=== PATIENT | female | born 1950 | race Caucasian/White ===

== ENCOUNTER 2023-05-20 14:40 | Inpatient (IN) | payer MEDICARE, OTHER, SELFPAY ==
[2023-05-20 14:40] VITALS: BP 127/76; PULSE 76; RESP 16; TEMP 36.8; O2SAT 100; BMI 28.7
--- NOTE | 2023-05-20 14:55 | W.ED.SYNCOPE ---
HPI - Syncope General: Chief Complaint: Syncope Stated Complaint: syncopal episode Time Seen by Provider: 05/20/23 14:52 Source: patient Mode of arrival: ambulatory History of Present Illness: 73-year-old female presents to the emergency room with dizziness and syncopal episode. She was standing outside getting ready to get on a bus felt lightheaded dizzy so bystander eased her to the ground there was a loss of consciousness that she relates was 2 minutes she had some convulsive like activities. She denies headache or chest pain she does have some abdominal cramping. She denies dysuria urgency or frequency no fever sweats chills vomiting or diarrhea. No shortness of breath denies headache. Patient awake alert and oriented. Patient denies any recent head trauma. MD complaint: loss of consciousness Onset (ago): minute(s) Description of event: tonic-clonic movements Prodromal symptoms: lightheaded and palpitations Witnessed: Yes - by Bystander Context: standing up Associated symptoms: Reports lightheadedness, nausea and weakness; Deny abdominal pain, chest pain, fever(s), headache(s), short of breath or vertigo Treatments prior to arrival: none Review of Systems Const: Denies: fever(s) or chills Card: Reports: lightheadedness; Denies: chest pain Resp: Denies: dyspnea GI: Reports: nausea; Denies: abdominal pain : Denies: dysuria, urinary frequency or urinary urgency Musc: Denies: neck pain or back pain Skin/Breast: Denies: rash Neuro: Denies: headache(s) or vertigo Physical Exam Const: GENERAL APPEARANCE: cooperative and comfortable ORIENTATION/CONSCIOUSNESS: Yes awake, Yes oriented to person, Yes oriented to place and Yes oriented to time HENMT: COMMON NORMALS: normocephalic, atraumatic and hearing grossly normal bilaterally HEAD & SCALP: normocephalic and atraumatic Resp: COMMON NORMALS: normal respiratory effort, No retractions, No use of accessory muscles and clear to auscultation bilaterally AUSCULTATION: clear to auscultation bilaterally Cardio: COMMON NORMALS: regular rate, regular rhythm and No murmurs present (Cardio) RATE: regular rate RHYTHM: regular rhythm GI: COMMON NORMALS: Soft to palpation and No hepatosplenomegaly present AUSCULTATION: Yes normoactive bowel sounds PALPATION: Yes Soft to palpation, No Tenderness to palpation present (GI), No Guarding due to palpation present (GI) and Yes No hepatosplenomegaly present Extremity: COMMON NORMALS: normal to inspection, capillary refill normal, no clubbing, cyanosis or edema, no calf tenderness and no pedal edema Neuro: SENSORIUM/ORIENTATION: Yes oriented to person, Yes oriented to place and Yes oriented to time Skin: COMMON NORMALS: no rashes or lesions noted GENERAL SKIN EXAM: no rashes or lesions noted Course Vital Signs: Vital signs: Vital Signs Temperature 97.9 F 05/22/23 13:22 Pulse Rate 68 05/22/23 13:22 Respiratory Rate 18 05/22/23 13:22 Blood Pressure 167/93 05/22/23 13:22 Pulse Oximetry 100 05/22/23 13:22 Oxygen Delivery Me thod Room Air 05/22/23 12:14 MDM - Syncope Medical Decision Making Labs and imaging reviewed. Admit for syncope. Discussed with hospitalist orders written. Medical Records I reviewed the patient's medical records. Lab Data I reviewed the patient's lab results. 05/22/23 05:59 05/22/23 05:[address] 05/20/23 15:52 IMPRESSION: No acute intracranial abnormality. Laboratory Results WBC 6.78 10^3/uL (3.29-11.43) 05/20/23 15:12 RBC 4.08 10^6/uL (3.85-5.65) 05/20/23 15:12 Hgb 12.70 g/dL (11.27-16.99) 05/20/23 15:12 Hct 39.8 % (36-47) 05/20/23 15:12 MCV 97.5 fl (85-98) 05/20/23 15:12 MCH 31.1 pg (27-33) 05/20/23 15:12 MCHC 31.9 g/dL (30-55) 05/20/23 15:12 RDW 13.2 % (12.1-15.1) 05/20/23 15:12 Plt Count 144 10^3/cmm (157-399) L 05/20/23 15:12 MPV 10.0 fL (7.4-10.4) 05/20/23 15:12 Neut % (Auto) 89.9 % 05/20/23 15:12 Lymph % (Auto) 7.7 % 05/20/23 15:12 [place] % (Auto) 2.1 % 05/20/23 15:12 Eos % (Auto) 0.1 % 05/20/23 15:12 Baso % (Auto) 0.1 % 05/20/23 15:12 Neut # (Auto) 6.09 10^3/uL (1.8-7.7) 05/20/23 15:12 Lymph # (Auto) 0.5 10^3/uL (0.8-4.8) L 05/20/23 15:12 [place] # (Auto) 0.1 10^3/uL (0.2-0.9) L 05/20/23 15:12 Eos # (Auto) 0.0 10^3/uL (0.0-0.8) 05/20/23 15:12 Baso # (Auto) 0.0 10^3/uL (0.0-0.1) 05/20/23 15:12 Nucleated RBC % (auto) 0 % 05/20/23 15:12 Nucleated RBCs # 0.0 /100WBC 05/20/23 15:12 Sodium 139 mmol/L (136-145) 05/20/23 15:12 Potassium 4.2 mmol/L (3.5-5.1) 05/20/23 15:12 Chloride 103 mmol/L (98-107) 05/20/23 15:12 Carbon Dioxide 20 mmol/L (22-29) L 05/20/23 15:12 Anion Gap 20.2 (5-19) H 05/20/23 15:12 BUN 23 mg/dL (8-23) 05/20/23 15:12 Creatinine 1.0 mg/dL (0.5-0.9) H 05/20/23 15:12 GFR Calculation Not Reportable 05/20/23 15:12 Glucose 125 mg/dL (65-115) H 05/20/23 15:12 Calculated Osmolality 293 mOsm/kg (285-295) 05/20/23 15:12 Lactic Acid 0.9 mmol/L (0.5-2.2) 05/20/23 15:53 Calcium 9.8 mg/dL (8.5-10.5) 05/20/23 15:12 Magnesium 2.1 mg/dL (1.7-2.3) 05/20/23 15:12 Total Bilirubin 0.5 mg/dL (0.15-1.2) 05/20/23 15:12 AST 18 U/L (0-32) 05/20/23 15:12 ALT 10 U/L (0-33) 05/20/23 15:12 Alkaline Phosphatase 63 U/L (35-105) 05/20/23 15:12 Troponin T Baseline 12 ng/L (0-10) H 05/20/23 15:12 Troponin T 120 Minute 12.98 ng/L (0-10) H 05/20/23 17:05 Delta Troponin T 0.98 ABS# (0-10) 05/20/23 17:05 Total Protein 7.2 g/dL (6.6-8.7) 05/20/23 15:12 Albumin 4.5 g/dL (3.5-5.2) 05/20/23 15:12 Globulin 2.7 g/dL (1.3-4.6) 05/20/23 15:12 Urine Color Yellow (Yellow) 05/20/23 17:05 Urine Appearance Hazy (CLEAR) A 05/20/23 17:05 Urine pH 5 (5-7) 05/20/23 17:05 Ur Specific [place] 1.015 (1.005-1.030) 05/20/23 17:05 Urine Protein 1+ (Negative) H 05/20/23 17:05 Urine Glucose (UA) Norm (Normal) 05/20/23 17:05 Urine Ketones 1+ (Negative) H 05/20/23 17:05 Urine Blood 3+ (Negative) H 05/20/23 17:05 Urine Nitrate Negative (Negative) 05/20/23 17:05 Urine Bilirubin 1+ (Negative) H 05/20/23 17:05 Urine Urobilinogen 1 mg/dL (Negative) H 05/20/23 17:05 Ur Leukocyte Esterase 2+ (Negative) H 05/20/23 17:05 Urine RBC 10-15 /hpf (0-2) H 05/20/23 17:05 Urine WBC 25-40 /hpf (0-5) H 05/20/23 17:05 Ur Squamous Epith Cells 25-40 /hpf (0-5) H 05/20/23 17:05 Amorphous Sediment Not Reportable 05/20/23 17:05 Urine Bacteria 2+ /hpf (NONE) H 05/20/23 17:05 All radiology interpretation(s) finalized by discharge Discharge Plan Discharge Patient Disposition: Admitted As Inpatient Admit Provider: Hawa Avina Clinical Impression: Syncope, UTI (urinary tract infection) Condition: Stable Discharge Diet: Usual diet Discharge Activity: Resume usual activity Coding Level of Care Code ED 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
--- NOTE | 2023-05-20 15:02 | ECG_ITS ---
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 Measurements Intervals [place] Rate: 72 P: 28 [place]: 151 QRS: 9 QRSD: 81 T: 37 QT: 373 QTc: 409 Interpretive Statements SINUS RHYTHM POSSIBLE INFERIOR MYOCARDIAL INFARCTION , PROBABLY OLD [30 ms Q WAVE IN II/aVF] No previous ECG available for comparison Electronically Signed On 05-20-2023 23:08:40 CDT by Gio Mason M.D. [id number] f
--- NOTE | 2023-05-20 15:03 | XR_ITS ---
WS: [id number] Portable AP semiupright chest, Clinical Data: dyspnea/cough Comparison: None. Findings: No nodules, masses or effusions are seen. The heart is normal. The pulmonary vascularity is not increased. No pneumonia or pneumothorax is seen. The aortic arch and descending thoracic aorta s how tortuosity. Impression: Atherosclerosis.
[2023-05-20 15:21] LABS: Basophils % 0.1 %; Eosinophils % 0.1 %; Hematocrit 39.8 % (36-47); Lymphocytes # 0.5 10^3/uL (0.8-4.8); Lymphocytes % 7.7 %; Mean Corpuscular HGB Conc 31.9 g/dL (30-55); Mean Corpuscular Hemoglobin 31.1 pg (27-33); Mean Corpuscular Volume 97.5 fl (85-98); Monocytes # 0.1 10^3/uL (0.2-0.9); Monocytes % 2.1 %; Neutrophils # 6.09 10^3/uL (1.8-7.7); Neutrophils % 89.9 %; Nucleated Red Blood Cells % 0 %; Platelet Count 144 10^3/cmm (157-399); Red Blood Count 4.08 10^6/uL (3.85-5.65); Red Cell Distribution Width 13.2 % (12.1-15.1); White Blood Count 6.78 10^3/uL (3.29-11.43)
[2023-05-20 15:31] VITALS: BP 129/90; BP 135/83; BP 79/65
[2023-05-20 15:49] LABS: Alanine Aminotransferase 10 U/L (0-33); Albumin Level 4.5 g/dL (3.5-5.2); Alkaline Phosphatase 63 U/L (35-105); Anion Gap 20.2 (5-19); Aspartate Amino Transferase 18 U/L (0-32); Blood Urea Nitrogen 23 mg/dL (8-23); Calcium 9.8 mg/dL (8.5-10.5); Carbon Dioxide 20 mmol/L (22-29); Chloride 103 mmol/L (98-107); Globulin 2.7 g/dL (1.3-4.6); Glucose 125 mg/dL (65-115); Magnesium 2.1 mg/dL (1.7-2.3); Osmolality Calculated 293 mOsm/kg (285-295); Potassium 4.2 mmol/L (3.5-5.1); Sodium 139 mmol/L (136-145); Total Bilirubin 0.5 mg/dL (0.15-1.2); Total Protein 7.2 g/dL (6.6-8.7)
--- NOTE | 2023-05-20 15:52 | CTR_ITS ---
PROCEDURE INFORMATION: Exam: CT Head Without Contrast Exam date and time: 05/20/2023 4:16 PM Age: 73 years old Clinical indication: Alteration of consciousness and dizziness; Syncope and collapse; Additional info: Loc TECHNIQUE: Imaging protocol: Computed tomography of the head without contrast. Radiation optimization: All CT scans at this facility use at least one of these dose optimization techniques: automated exposure control; mA and/or kV adjustment per patient size (includes targeted exams where dose is matched to clinical indication); or iterative reconstruction. REPORTING DATA: Count of CT and Cardiac NM exams in prior 12 months: This patient has received 0 known CTs and 0 known cardiac nuclear medicine studies in the 12 months prior to the current study. COMPARISON: No relevant prior studies available. RADIATION DOSE METRICS: Total DLP (mGy-cm): 984.6 FINDINGS: Brain: Mild parenchymal volume loss. Mild bilateral periventricular and subcortical white matter hypodensities are present compatible with small-vessel ischemic disease. No midline shift. No mass, acute infarct, hemorrhage, or extra-axial fluid collection. Cerebral ventricles: No ventriculomegaly. Paranasal sinuses: Visualized sinuses are unremarkable. No fluid levels. Mastoid air cells: Visualized mastoid air cells are well aerated. Bones/joints: Unremarkable. No acute fracture. Soft tissues: Unremarkable. CT/CT head wo con* [id number] IMPRESSION: No acute intracranial abnormality.
[2023-05-20 16:46] LABS: Troponin(5th) Baseline 12 ng/L (0-10)
[2023-05-20 16:48] LABS: Lactic Sepsis W/Reflex 0.9 mmol/L (0.5-2.2)
[2023-05-20 16:53] VITALS: BP 127/61; PULSE 70; RESP 15; O2SAT 100
[2023-05-20 17:33] LABS: Troponin 5 2HR 12.98 ng/L (0-10)
[2023-05-20 17:34] LABS: Troponin 5 2HR Delta 0.98 ABS# (0-10)
--- NOTE | 2023-05-20 17:59 | ECG_ITS ---
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 Measurements Intervals [place] Rate: 71 P: 29 [place]: 148 QRS: 12 QRSD: 80 T: 46 QT: 369 QTc: 401 Interpretive Statements SINUS RHYTHM Compared to ECG 05/20/2023 14:44:13 Myocardial infarct finding no longer present Electronically Signed On 05-20-2023 23:10:28 CDT by Gio Mason M.D. [id number]
[2023-05-20 18:00] VITALS: BP 131/79; PULSE 81; RESP 23; O2SAT 98
[2023-05-20 18:05] LABS: Add Urine Microscopic? YES; Bacteria Urine 2+ /hpf; Bilirubin Urine 1+ (Negative); Blood Urine 3+ (Negative); Glucose Urine UA Norm (Normal); Ketones Urine 1+ (Negative); Leukocyte Esterase Urine 2+ (Negative); Nitrate Urine Negative (Negative); Protein Urine 1+ (Negative); Specific Gravity, Urine 1.015 (1.005-1.030); Squamous Epithelial Cell Urine 25-40 /hpf (0-5); Urine Appearance Hazy (CLEAR); Urine Color Yellow (Yellow); Urobilinogen Urine 1 mg/dL (Negative); WBC Urine 25-40 /hpf (0-5); pH Urine 5 (5-7)
[2023-05-20 19:59] VITALS: BP 145/77; PULSE 78; RESP 17; TEMP 37; O2SAT 99
[2023-05-20] MEDS: levofloxacin-dextrose 5 % 750 MG/150 ML PREMIX 100 MG IV (20:39)
[2023-05-20] MEDS: sodium chloride 0.9% 1,000 ML 75 ML IV (20:40)
--- NOTE | 2023-05-20 21:05 | ECG_ITS ---
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 Measurements Intervals [place] Rate: 72 P: 37 [place]: 161 QRS: 35 QRSD: 83 T: 47 QT: 373 QTc: 410 Interpretive Statements SINUS RHYTHM MODERATE T-WAVE ABNORMALITY, CONSIDER INFERIOR ISCHEMIA [-0.1+ mV T-WAVE IN II/aVF] Compared to ECG 05/20/2023 17:59:11 T-wave abnormality now present Possible ischemia now present Electronically Signed On 05-20-2023 23:09:47 CDT by Gio Mason M.D. [id number]
[2023-05-20 21:41] LABS: Troponin 5 6HR 13.01 ng/L (0-10)
[2023-05-20 21:42] LABS: Troponin 5 6HR Delta 1.01 ng/L (0-12)
[2023-05-20 22:00] VITALS: PULSE 81
--- NOTE | 2023-05-20 23:24 | PM.HP ---
Providers/Chief Complaint Admitting Physician: Hawa Avina MD Primary Care Provider: Marcelle Roberson MD Chief Complaint: syncopal episode History of Present Illness Trudi Goldstein is a 73 year old female with history of hypertension hypothyroidism was brought in by EMS for syncopal episode. As per the patient she came out of her apartment ,went to the bus stop, where she was talking to a friend and suddenly started feeling low and had loss of consciousness. Just before LOC she told her friend that she is going to pass out , she reported she had premonitory signs like uneasiness diaphoresis dizziness and weakness . she had loss of consciousness that lasted for 2 minutes which was followed by shaking movements of her body but no postictal symptoms, no headache ,no nausea or vomiting no bladder or bowel incontinence. There is no history of fever cold cough chest pain shortness of breath nausea vomiting diarrhea or urinary complaints prior to the syncopal episode. She visited her PCP today for complaint of sore throat for 3 weeks likely secondary to allergic pharyngitis and was prescribed cefdinir 300 mg twice a day for 10 days. She took 1 dose of antibiotics yesterday. Review of Systems Narrative: As per HPI Medications/Allergies Home Medications Medication Instructions Recorded Confirmed Last Taken Type atenolol 25 mg tablet 12.5 mg PO BID 05/20/23 05/20/23 Unknown History cefdinir 300 mg capsule 300 mg PO BID 05/20/23 05/20/23 05/20/23 History levothyroxine 75 mcg tablet 75 mcg PO DAILY 05/20/23 05/20/23 Unknown History (Synthroid) Allergies Allergy/AdvReac Type Severity Reaction Status Date / Time clindamycin Allergy ADR-Gastrointestinal Verified 05/20/23 20:49 Upset Penicillins Allergy Unknown Verified 05/20/23 14:59 Sulfa (Sulfonamide Allergy Unknown Verified 05/20/23 14:59 Antibiotics) Many Allergies- List Unknown Allergy Unknown Uncoded 05/20/23 14:53 Vitals/I&O/Wt Last Vital Signs Temp 98.6 F 05/20/23 19:59 Pulse 78 05/20/23 19:59 Resp 17 05/20/23 19:59 BP 145/77 05/20/23 19:59 Pulse Ox 99 05/20/23 19:59 O2 Del Method Room Air 05/20/23 19:59 05/20/23 05/20/23 05/21/23 14:59 22:59 06:59 Intake Total 150 / 150 Balance 150 / 150 Weight last 48 hrs Weight 68.946 kg Physical Exam Narrative: She is alert awake oriented x3 pleasant and cooperative Chest clear to auscultation bilaterally Cardiovascular normal heart sounds no murmurs Abdomen soft nontender nondistended normal bowel sounds Extremities no edema noted Neurological normal speech intact cranial nerves no focal motor or sensory deficits Data 05/20/23 15:12 05/20/23 15:12 CXR: Radiologist's impression: Atherosclerosis CT Head: Radiologist's impression: No acute intracranial findings EKG 1: My Interpretation: Normal sinus rhythm at 72 bpm Normal axis No acute ST-T changes A&P Assessment and plan (1) Syncope: (2) UTI (urinary tract infection): Plan 3 year old female with history of hypertension hypothyroidism was brought in by EMS for syncopal episode likely vasovagal and found to have UTI. 3 sets of troponins negative, EKG within normal limits No need for further cardiac work-up Check orthostasis Will give IV levofloxacin 750 mg daily IV fluids normal saline at 75 mL/h IV Pepcid 20 mg twice a day for stress ulcer prophylaxis Subcutaneous Lovenox 30 mg daily for DVT prophylaxis Resume home medications She is full code for now as per the discussion with the patient Attestations Medical Necessity Statement*: She needs hospitalization less than 2 days. She is here for observation for a syncopal episode and management of UTI with IV antibiotics and IV fluids Time Spent in Patient Care: 25 minutes Coding Level of Care Code Acute Code for g Fwd Diagnoses Syncope R55 UTI (urinary tract infection) N39.0 Time Spent (min) 25
[2023-05-21] VITALS (8 sets, daily range): BP systolic 100–159; BP diastolic 60–83; PULSE 66–96; RESP 15–18; TEMP 36.4–37.3; O2SAT 95–100
[2023-05-21] MEDS: famotidine 20 mg/2 mL INJ IVP (00:39)
[2023-05-21 04:47] LABS: Basophils % 0.1 %; Hematocrit 31.9 % (36-47); Lymphocytes # 0.5 10^3/uL (0.8-4.8); Lymphocytes % 5.9 %; Mean Corpuscular HGB Conc 32.9 g/dL (30-55); Mean Corpuscular Volume 94.1 fl (85-98); Monocytes # 0.8 10^3/uL (0.2-0.9); Monocytes % 9.8 %; Neutrophils # 6.63 10^3/uL (1.8-7.7); Neutrophils % 83.8 %; Nucleated Red Blood Cells % 0 %; Platelet Count 141 10^3/cmm (157-399); Red Blood Count 3.39 10^6/uL (3.85-5.65); Red Cell Distribution Width 13.3 % (12.1-15.1); White Blood Count 7.92 10^3/uL (3.29-11.43)
[2023-05-21 05:13] LABS: Alanine Aminotransferase 9 U/L (0-33); Albumin Level 3.7 g/dL (3.5-5.2); Alkaline Phosphatase 46 U/L (35-105); Anion Gap 15.9 (5-19); Aspartate Amino Transferase 16 U/L (0-32); Blood Urea Nitrogen 30 mg/dL (8-23); Calcium 8.3 mg/dL (8.5-10.5); Carbon Dioxide 21 mmol/L (22-29); Chloride 105 mmol/L (98-107); Globulin 2.4 g/dL (1.3-4.6); Glucose 105 mg/dL (65-115); Osmolality Calculated 293 mOsm/kg (285-295); Potassium 3.9 mmol/L (3.5-5.1); Sodium 138 mmol/L (136-145); Total Bilirubin 0.8 mg/dL (0.15-1.2); Total Protein 6.1 g/dL (6.6-8.7)
[2023-05-21] MEDS: atenolol 50 mg Tablet 12.5 MG PO ×2 (08:14→18:14)
[2023-05-21] MEDS: levothyroxine 75 mcg Tablet PO (08:14)
--- NOTE | 2023-05-21 14:40 | USCV_ITS ---
Trudi Goldstein Age: 73 Gender: F : 1950 Exam Date: 05/21/2023 15:38 Ordering Phys: Nerissa Donato MD Technologist: Ezequiel Hollingsworth Exam Location: [facility] [place] Indication: syncope BP: 121 / 70 HR: 64 Rhythm: Sinus Technical Quality: Adequate MEASUREMENTS (Male / Female) Normal Values 2D ECHO LVOT Diameter 2.0 cm LV Ejection Fraction MOD 2C 56.1 % LV Ejection Fraction 2C AL 59.4 % LA Diameter 4.0 cm LA Width 3.3 cm LA Height 4.1 cm RA Width 3.6 cm RA Height 4.4 cm Aorta at Sinotubular Diameter 2.5 cm IVC Diameter 1.9 cm M-MODE Aortic Annulus Diameter 2.7 cm LA Ao Ratio MM 1.6 MV E Point Septal Separation 0.5 cm DOPPLER AV Peak Velocity 177.0 cm/s LVOT Peak Velocity 161.0 cm/s AV Area Cont Eq vti 2.7 cm squared AV Area Cont Eq pk 2.9 cm squared MV Peak Velocity 120.0 cm/s MV Area PHT 3.2 cm squared Mitral E to A Ratio 0.9 MV E' Velocity 48.0 cm/s Mitral E to MV E' Ratio 9.8 Mitral E to LV E' Lateral Ratio 10.0 Mitral E to LV E' Septal Ratio 9.7 TR Peak Velocity 465.1 cm/s TR Peak Gradient 86.5 mmHg TR Mean Velocity 369.8 cm/s TR Mean Gradient 61.0 mmHg TR Velocity Time Integral 132.9 cm Right Atrial Pressure 3.0 mmHg Pulmonary Artery Systolic Pressu 89.5 mmHg PV Peak Velocity 104.0 cm/s RV Acceleration Time 0.1 s RV Ejection Time 0.3 s RV AcT/ET 0.5 FINDINGS Left Ventricle Normal left ventricular size, systolic function and wall thickness, with no regional wall motion abnormalities. Left ventricular ejection fraction is estimated at 60-65 %. Normal diastolic function. Right Ventricle Normal right ventricular size and systolic function. Right ventricular systolic pressure 35 mmHg. Right Atrium Mildly increased right atrial size. Left Atrium Normal left atrial size. Mitral Valve Structurally normal mitral valve. No mitral valve stenosis. Trace mitral valve regurgitation. Aortic Valve Structurally normal trileaflet aortic valve. No aortic valve stenosis. No aortic valve regurgitation. Tricuspid Valve Structurally normal tricuspid valve. No tricuspid valve stenosis. Trace tricuspid valve regurgitation. Pulmonic Valve Pulmonic valve not well visualized. Pericardium No pericardial effusion. Aorta Normal size aortic root and proximal ascending aorta. IVC Normal IVC dimension with >50% respiratory change of the inferior vena cava. CONCLUSIONS 1. Normal left ventricular size, systolic function and wall thickness, with no regional wall motion abnormalities. Left ventricular ejection fraction is estimated at 60-65 %. Normal diastolic function. 2. Pulmonary artery pressure estimated at 35 mm Hg. 3. No prior similar studies to compare. Heather Hatfield MD (Electronically Signed) Final Date: 22 May 2023 07:01 S
[2023-05-21 15:59] LABS: D Dimer 1.13 ug/mLFEU (0-0.59)
--- NOTE | 2023-05-21 16:36 | PM.PN ---
Subjective Subjective: overnight labs and H&P reviewed. Patient noted to be orthostatic. Blood pressure dropped to 79 systolic with change in position. Medications: Reviewed: Yes Vitals/I&O/Wt Last Vital Signs Temp 97.6 F 05/21/23 16:00 Pulse 73 05/21/23 16:00 Resp 15 05/21/23 16:00 BP 127/66 05/21/23 11:29 Pulse Ox 98 05/21/23 16:00 O2 Del Method Room Air 05/21/23 16:00 05/21/23 05/21/23 05/21/23 06:59 14:59 22:59 Intake Total 150 / 150 480 / 480 Output Total 250 / 250 Balance -100 / -100 480 / 480 Weight last 48 hrs Weight 68.946 kg Physical Exam Narrative: General: No acute distress, AO x3 HEENT: PERRLA, pupils bilaterally equal and reactive, pallors not present Chest: Normal vesicular breath sounds, no added sounds, equal good air entry bilaterally CVS: S1-S2 regular, no murmurs, no tachycardia, no gallops, no rubs Abdomen: Soft, nontender, no organomegaly, bowel sounds present Neuro: No focal deficits, no facial deformity, AO x3, power 5/5 in all limbs Data 05/21/23 04:30 05/21/23 04:30 Micro: Microbiology 05/21/23 15:30 Blood Culture - Preliminary Blood SPECIMEN COLLECTED 05/21/23 15:24 Blood Culture - Preliminary Blood SPECIMEN COLLECTED A&P Assessment and plan (1) Syncope: (2) UTI (urinary tract infection): Plan 73 year old female with history of hypertension hypothyroidism was brought in by EMS for syncopal episode #Syncope Patient noted to be orthostatic with blood pressure dropped to 79 upon standing. Unclear cause of orthostatics. Check D-dimer and if elevated proceed with CTA of the chest to evaluate for possible PE. Lawanda cute St t schanges on EKg, trop series reassuring less likely ACS Echo to evalute for valvular stenosis Continue IVF, recheck orthosatics after hydration no events on tele thus far # UTI Continue levofloxacin 750 mg daily for UTI empirically IV Pepcid 20 mg twice a day for stress ulcer prophylaxis Subcutaneous Lovenox 30 mg daily for DVT prophylaxis Resume home medications She is full code for now as per the discussion with the patient Attestations Medical Necessity Statement*: Ongoing evaluation for syncope and orthostatic hypotension Coding Level of Care Code Acute Code for Chg Fwd Diagnoses Syncope R55 UTI (urinary tract infection) N39.0
[2023-05-21] MEDS: sodium chloride 0.9% 1,000 ML 75 ML IV (18:13)
[2023-05-21] MEDS: levofloxacin-dextrose 5 % 750 MG/150 ML PREMIX 100 MG IV (19:39)
[2023-05-21] MEDS: enoxaparin 40 mg/0.4 mL Syringe SUBCUT (19:39)
[2023-05-21 20:30] LABS: Adenovirus Not Detected (NOT DETECT); Chlamydia Pneumoniae Not Detected (NOT DETECT); Coronavirus 229E,HKU1,NL63,OC4 Not Detected (NOT DETECT); Human Metapneumovirus Not Detected (NOT DETECT); Human Rhinovirus/Enterovirus Not Detected (NOT DETECT); Influenza A Not Detected (NOT DETECT); Influenza A H1 Not Detected (NOT DETECT); Influenza A H1-2009 Not Detected (NOT DETECT); Influenza A H3 Not Detected (NOT DETECT); Influenza B Not Detected (NOT DETECT); Mycoplasma Pneumoniae Not Detected (NOT DETECT); Parainfluenza Virus Type 1 Not Detected (NOT DETECT); Parainfluenza Virus Type 2 Not Detected (NOT DETECT); Parainfluenza Virus Type 3 Not Detected (NOT DETECT); Parainfluenza Virus Type 4 Not Detected (NOT DETECT); Respiratory Syncytial Virus A Not Detected (NOT DETECT); Respiratory Syncytial Virus B Not Detected (NOT DETECT); SARS-COV-2 Not Detected (NOT DETECT)
[2023-05-22] VITALS (7 sets, daily range): BP systolic 136–170; BP diastolic 78–98; PULSE 57–68; RESP 17–18; TEMP 36.6–36.7; O2SAT 98–100
[2023-05-22] MEDS: famotidine 20 mg/2 mL INJ IVP (00:11)
[2023-05-22 06:08] LABS: Basophils % 0.2 %; Eosinophils # 0.1 10^3/uL (0.0-0.8); Eosinophils % 1.5 %; Hematocrit 33.7 % (36-47); Lymphocytes # 1.4 10^3/uL (0.8-4.8); Lymphocytes % 22.3 %; Mean Corpuscular HGB Conc 31.8 g/dL (30-55); Mean Corpuscular Hemoglobin 30.4 pg (27-33); Mean Corpuscular Volume 95.7 fl (85-98); Mean Platelet Volume 10.3 fL (7.4-10.4); Monocytes # 0.6 10^3/uL (0.2-0.9); Monocytes % 9.5 %; Neutrophils # 4.03 10^3/uL (1.8-7.7); Neutrophils % 66.2 %; Nucleated Red Blood Cells % 0 %; Platelet Count 153 10^3/cmm (157-399); Red Blood Count 3.52 10^6/uL (3.85-5.65); Red Cell Distribution Width 13.5 % (12.1-15.1); White Blood Count 6.09 10^3/uL (3.29-11.43)
[2023-05-22 06:30] LABS: Alanine Aminotransferase 9 U/L (0-33); Albumin Level 3.6 g/dL (3.5-5.2); Alkaline Phosphatase 44 U/L (35-105); Blood Urea Nitrogen 16 mg/dL (8-23); Calcium 8.4 mg/dL (8.5-10.5); Carbon Dioxide 22 mmol/L (22-29); Chloride 110 mmol/L (98-107); Globulin 2.7 g/dL (1.3-4.6); Glucose 101 mg/dL (65-115); Osmolality Calculated 291 mOsm/kg (285-295); Sodium 140 mmol/L (136-145); Total Bilirubin 0.4 mg/dL (0.15-1.2); Total Protein 6.3 g/dL (6.6-8.7)
[2023-05-22 06:36] LABS: Anion Gap 12.4 (5-19); Aspartate Amino Transferase 21 U/L (0-32); Potassium 4.4 mmol/L (3.5-5.1)
[2023-05-22] MEDS: levothyroxine 75 mcg Tablet PO (08:29)
[2023-05-22] MEDS: atenolol 50 mg Tablet 12.5 MG PO (08:29)
[2023-05-22] MEDS: sodium chloride 0.9% 1,000 ML 75 ML IV (08:31)
--- NOTE | 2023-05-22 11:33 | P.DS_ITS ---
Discharge Providers Date of Admission: 05/20/23 17:18 Date of Discharge: May 27, 2023 Attending Provider at Admission: Hawa Avina MD Attending Provider at Discharge: Nerissa Donato MD Primary Care Provider: Marcelle Roberson MD Diagnoses at Discharge Discharge Diagnosis (1) Syncope: Status: Acute (2) UTI (urinary tract infection): Status: Acute Reason for Visit Reason for Visit: syncopal episode Brief History: Trudi Goldstein is a 73 year old female with history of hypertension hypothyroidism was brought in by EMS for syncopal episode which was preceeded by uneasiness diaphoresis dizziness and weakness . Hospital course as below: Hospital Course Hospital Course #Syncope Patient noted to be orthostatic on day of admission with blood pressure dropped to 79 upon standing. Unclear cause of orthostatic drop in BP. May be related to dehydration. She received IVF normal saline infusion during course of admission which corrected her orthostatic drop in BP. D-dimer mildly elevated, likely age appropriate elevation, no respiratory symptoms, patient remained on room air during hospitalization, no c/o chest pain or dyspnea. ?No acute ST-T wave changes on EKG, trop series reassuring less likely ACS Echocardiogram with Normal left ventricular size, systolic function and wall thickness, with no regional wall motion abnormalities. Left ?ventricular ejection fraction is estimated at 60-65 %. Normal?diastolic function. no events on telemetry during admission Beta blockers were continued during admission without any noted bradycardia or further episodes of hypotension CT head normal # UTI Received levofloxacin 750 mg daily for UTI empirically Urine cx eventually with mixed urogenital harmony Physical Exam Narrative: General: No acute distress, AO x3 HEENT: PERRLA, pupils bilaterally equal and reactive, pallors not present Chest: Normal vesicular breath sounds, no added sounds, equal good air entry bilaterally CVS: S1-S2 regular, no murmurs, no tachycardia, no gallops, no rubs Abdomen: Soft, nontender, no organomegaly, bowel sounds present Neuro: No focal deficits, no facial deformity, AO x3, power 5/5 in all limbs Discharge Data Studies Completed and Pending Completed Studies During Hospitalization Category Date Time Status CT head wo con* [id number] Stat Cat Scan 05/20/23 15:52 Completed XR chest 1V portable [id number] Stat Exams 05/20/23 15:03 Completed CV. echo complete* [id number] Routine Ultrasound 05/21/23 14:40 Completed Radiology Impressions Head CT 05/20/23 15:52 IMPRESSION: No acute intracranial abnormality. Laboratory Results WBC 6.09 10^3/uL (3.29-11.43) 05/22/23 05:59 RBC 3.52 10^6/uL (3.85-5.65) L 05/22/23 05:59 Hgb 10.70 g/dL (11.27-16.99) L 05/22/23 05:59 Hct 33.7 % (36-47) L 05/22/23 05:59 MCV 95.7 fl (85-98) 05/22/23 05:59 MCH 30.4 pg (27-33) 05/22/23 05:59 MCHC 31.8 g/dL (30-55) 05/22/23 05:59 RDW 13.5 % (12.1-15.1) 05/22/23 05:59 Plt Count 153 10^3/cmm (157-399) L 05/22/23 05:59 MPV 10.3 fL (7.4-10.4) 05/22/23 05:59 Neut % (Auto) 66.2 % 05/22/23 05:59 Lymph % (Auto) 22.3 % 05/22/23 05:59 Brooks % (Auto) 9.5 % 05/22/23 05:59 Eos % (Auto) 1.5 % 05/22/23 05:59 Baso % (Auto) 0.2 % 05/22/23 05:59 Neut # (Auto) 4.03 10^3/uL (1.8-7.7) 05/22/23 05:59 Lymph # (Auto) 1.4 10^3/uL (0.8-4.8) 05/22/23 05:59 Brooks # (Auto) 0.6 10^3/uL (0.2-0.9) 05/22/23 05:59 Eos # (Auto) 0.1 10^3/uL (0.0-0.8) 05/22/23 05:59 Baso # (Auto) 0.0 10^3/uL (0.0-0.1) 05/22/23 05:59 Nucleated RBC % (auto) 0 % 05/22/23 05:59 Nucleated RBCs # 0.0 /100WBC 05/22/23 05:59 D-Dimer 1.13 ug/mLFEU (0-0.59) H 05/21/23 15:24 Sodium 140 mmol/L (136-145) 05/22/23 05:59 Potassium 4.4 mmol/L (3.5-5.1) 05/22/23 05:59 Chloride 110 mmol/L (98-107) H 05/22/23 05:59 Carbon Dioxide 22 mmol/L (22-29) 05/22/23 05:59 Anion Gap 12.4 (5-19) 05/22/23 05:59 BUN 16 mg/dL (8-23) 05/22/23 05:59 Creatinine 0.7 mg/dL (0.5-0.9) 05/22/23 05:59 GFR Calculation Not Reportable 05/22/23 05:59 Glucose 101 mg/dL (65-115) 05/22/23 05:59 Calculated Osmolality 291 mOsm/kg (285-295) 05/22/23 05:59 Lactic Acid 0.9 mmol/L (0.5-2.2) 05/20/23 15:53 Calcium 8.4 mg/dL (8.5-10.5) L 05/22/23 05:59 Magnesium 2.1 mg/dL (1.7-2.3) 05/20/23 15:12 Total Bilirubin 0.4 mg/dL (0.15-1.2) 05/22/23 05:59 AST 21 U/L (0-32) 05/22/23 05:59 ALT 9 U/L (0-33) 05/22/23 05:59 Alkaline Phosphatase 44 U/L (35-105) 05/22/23 05:59 Troponin T Baseline 12 ng/L (0-10) H 05/20/23 15:12 Troponin T 120 Minute 12.98 ng/L (0-10) H 05/20/23 17:05 Delta Troponin T 0.98 ABS# (0-10) 05/20/23 17:05 Troponin T Hi Sens 6Hr 13.01 ng/L (0-10) H 05/20/23 21:12 Troponin T Hi Sens 6Hr Delta 1.01 ng/L (0-12) 05/20/23 21:12 Total Protein 6.3 g/dL (6.6-8.7) L 05/22/23 05:59 Albumin 3.6 g/dL (3.5-5.2) 05/22/23 05:59 Globulin 2.7 g/dL (1.3-4.6) 05/22/23 05:59 Urine Color Yellow (Yellow) 05/20/23 17:05 Urine Appearance Hazy (CLEAR) A 05/20/23 17:05 Urine pH 5 (5-7) 05/20/23 17:05 Ur Specific [place] 1.015 (1.005-1.030) 05/20/23 17:05 Urine Protein 1+ (Negative) H 05/20/23 17:05 Urine Glucose (UA) Norm (Normal) 05/20/23 17:05 Urine Ketones 1+ (Negative) H 05/20/23 17:05 Urine Blood 3+ (Negative) H 05/20/23 17:05 Urine Nitrate Negative (Negative) 05/20/23 17:05 Urine Bilirubin 1+ (Negative) H 05/20/23 17:05 Urine Urobilinogen 1 mg/dL (Negative) H 05/20/23 17:05 Ur Leukocyte Esterase 2+ (Negative) H 05/20/23 17:05 Urine RBC 10-15 /hpf (0-2) H 05/20/23 17:05 Urine WBC 25-40 /hpf (0-5) H 05/20/23 17:05 Ur Squamous Epith Cells 25-40 /hpf (0-5) H 05/20/23 17:05 Amorphous Sediment Not Reportable 05/20/23 17:05 Urine Bacteria 2+ /hpf (NONE) H 05/20/23 17:05 Nasal Influ A H1 2009 PCR Not detected (NOT DETECT) 05/21/23 18:00 Adenovirus (PCR) Not detected (NOT DETECT) 05/21/23 18:00 C. pneumoniae DNA (PCR) Not detected (NOT DETECT) 05/21/23 18:00 Coronavirus 229E (PCR) Not detected (NOT DETECT) 05/21/23 18:00 Human Metapneumovir PCR Not detected (NOT DETECT) 05/21/23 18:00 Influenza A (H1) PCR Not detected (NOT DETECT) 05/21/23 18:00 Influenza A (H3) PCR Not detected (NOT DETECT) 05/21/23 18:00 Influenza Type A (PCR) Not detected (NOT DETECT) 05/21/23 18:00 Influenza Type B (PCR) Not detected (NOT DETECT) 05/21/23 18:00 M. pneumoniae (PCR) Not detected (NOT DETECT) 05/21/23 18:00 Parainfluenza 1 (PCR) Not detected (NOT DETECT) 05/21/23 18:00 Parainfluenza 2 (PCR) Not detected (NOT DETECT) 05/21/23 18:00 Parainfluenza 3 (PCR) Not detected (NOT DETECT) 05/21/23 18:00 Parainfluenza 4 (PCR) Not detected (NOT DETECT) 05/21/23 18:00 RSV Type A (PCR) Not detected (NOT DETECT) 05/21/23 18:00 RSV Type B (PCR) Not detected (NOT DETECT) 05/21/23 18:00 Entero/Rhino (PCR) Not detected (NOT DETECT) 05/21/23 18:00 SARS-CoV-2 (PCR) Not detected (NOT DETECT) 05/21/23 18:00 Vitals Last Vital Signs Temp 97.9 F 05/22/23 13:22 Pulse 68 05/22/23 13:22 Resp 18 05/22/23 13:22 BP 167/93 05/22/23 13:22 Pulse Ox 100 05/22/23 13:22 O2 Del Method Room Air 05/22/23 12:14 Discharge Plan Discharge Patient Disposition: Home Condition: Stable Prescriptions: Continued atenolol 25 mg tablet 12.5 mg PO BID Synthroid 75 mcg tablet 75 mcg PO DAILY cefdinir 300 mg capsule 300 mg PO BID Discharge Orders: Discharge Order (Routine); Ordered 05/22/23 Ordered By: Nerissa Donato Referrals: Marcelle Roberson MD [Primary Care Provider] - (Please call Tuesday to schedule a folowup appointment with Dr. Zhu.) Discharge Diet: Usual diet Discharge Activity: Resume usual activity Patient Instructions: Atenolol (By mouth), Levothyroxine (By mouth) (Levothroid, Levoxyl, Synthroid, Tirosint), Cefdinir (By mouth) (Omnicef), Urinary Tract Infection in Women (DC), Syncope in Older Adults (DC), Opioid Safety Discharge Attestations Time Spent in Discharge Care*: greater than 30 min Specific Discharge Activities: educating patient, educating and/or supporting family/caregiver, discussing with pcp/other providers, discussing with showcase maker/social workers/dc planners, documenting/other paperwork and evaluating patient/reviewing data Quality Metrics Clinical Quality Measures [ No reported AMI, CVA or VTE this stay] Coding Level of Care Code Acute Code for Chg Fwd Diagnoses Syncope R55 UTI (urinary tract infection) N39.0
--- NOTE | 2023-05-22 13:22 | PC.NURSE ---
Discharge Note Patient discharged to home via taxi accompanied by driver/merchandiser. Discharge instructions reviewed with patient and/or security representative. Mobile pharmacy medications and/or prescriptions provided. Belongings/home medications returned.
== END 2023-05-22 13:36 | disposition home or self-care (01) | DRG 312 ==
LOC: ER 16:51 → MEDSURG 18:13
PROVIDERS: Admitting Provider Internal Medicine; Emergency Provider Family Medicine; PCP Family Medicine; Visit Provider Student in an Organized Health Care Education/Training Program
DX: I95.1 Orthostatic hypotension (principal); N39.0 Urinary tract infection, site not specified; E86.0 Dehydration; I10 Essential (primary) hypertension; E03.9 Hypothyroidism, unspecified; Z88.0 Allergy status to penicillin; Z88.2 Allergy status to sulfonamides
CPT/HCPCS: 36415; 70450; 71045; 80053; 81001; 83605; 83735; 84484; 85025; 85378; 87040; 87086; 87486; 87581; 87633; 93005; 93306; 96372; 99285; J1650; J1956; J3490; J7030

== ENCOUNTER → 2023-08-11 09:06 | Outpatient (BNVA) | payer MEDICARE, OTHER, SELFPAY | PROVIDERS: Visit Provider Family Medicine | DX: E03.9 Hypothyroidism, unspecified (principal); I10 Essential (primary) hypertension; Z13.220 Encounter for screening for lipoid disorders; Z13.6 Encounter for screening for cardiovascular disorders | CPT/HCPCS: 80053; 80061; 84439; 84443; 84481 ==

== ENCOUNTER → 2024-01-05 15:30 | Outpatient (BNVA) | payer MEDICARE, OTHER, SELFPAY | PROVIDERS: PCP Family Medicine; Visit Provider Family Medicine | DX: R30.0 Dysuria | CPT/HCPCS: 81000 ==

== ENCOUNTER → 2025-03-04 10:15 | Outpatient (BNVA) | payer MEDICARE, OTHER, SELFPAY | PROVIDERS: PCP Family Medicine; Visit Provider Family Medicine | DX: I10 Essential (primary) hypertension (principal); E03.9 Hypothyroidism, unspecified; M25.562 Pain in left knee | CPT/HCPCS: 73562; 80048; 80061; 84443 ==

== ENCOUNTER → 2025-04-22 12:01 | Outpatient (BNVA) | payer MEDICARE, OTHER, SELFPAY | PROVIDERS: PCP Family Medicine; Visit Provider Nurse Practitioner | DX: J02.9 Acute pharyngitis, unspecified (principal) | CPT/HCPCS: 87071; 87880 ==

== ENCOUNTER 2025-06-01 17:05 | Emergency (ER) | payer MEDICARE, OTHER, SELFPAY ==
[2025-06-01 17:06] VITALS: BP 151/71; PULSE 87; RESP 16; TEMP 36.7; O2SAT 100; BMI 28.3
--- OUTSIDE RECORDS SUMMARY | 2025-06-01 17:11 | XMS_ITS | Encounter Summary ---
Author Organization [facility] Address [address] [place] [address] Care Team Providers Care Ladle Car Operator Name Role Phone Corbin Osorio MD Primary Care Provider [phone] Reason for Visit * Reason Comments Remote Monitoring Encounter Details Date Type Department Care Team (Late st Contact Info) Description 02/27/2025 Telephone [facility] Medicine [address] [phone] Corbin Osorio MD [address] [place] [phone] Remote Monitoring Social History Tobacco Use Types Packs/Day Years Used Date Smoking Tobacco: Never Smokeless Tobacco: Never Alcohol Use Standard Drinks/Week Comments Never 0 (1 standard drink = 0.6 oz pur e alcohol) Comments No Sex and Gender Information Value Date Recorded Sex Assigned at Not on file Legal Sex Female 10:37 PM HEARING CARE PROFESSIONAL Gender Identity Not on file Sexual Orientation Not on file documented as of this encounter Miscellaneous Notes * Telephone Encounter - Rosita Gray LPN - 02/27/2025 9:44 AM CDT 02/27/2025 9:44 AM Returned call and spoke with patient let her know Lisette was out of the office until later today. Discussed that she is feeling good. Denies any SOB at this time. The patient states the 2 times that she did experience SOB she was bending over and then she sat down and it passed. Rosita RAMON * Telephone Encounter - Elena Young - 02/27/2025 9:18 AM CDT Copied from [facility] #[id number]. Topic: Patient Reported Outcome Metrics >> Feb 27, 2025 9:04 AM Elena Urbina wrote: Caller Name: Patient Callback Number: [phone] Call Notes: Caller is reporting Blood Pressure Date - 02/23/2025 /9:15 97/65 /Blood Pressure Pulse 85 Date - 02/23/2025 /Time - 7:00 p.m. /Blood Pressure Measurement - 134/75 Pulse 61 Date - 02/24/2025 /Time - 10:15 am /Blood Pressure Measurement - 106/ 67 Pulse 71 Date - 02/24/2025 Time - 7:00 pm /Blood Pressure Measurement - 123/ 74 Pulse 68 Date - 02/25/2025 /Time - morning /Blood Pressure Measurement - 125/ 88 Pulse 82 Date - 02/25/2025 /Time - 7:00 p.m. /Blood Pressure Measurement - 129/ 80 Pulse 69 Date - 02/26/2025 /Time - 7:30 a.m. /Blood Pressure Measurement - 128/ 87 Pulse 84 Date - 02/26/2025 /Time - 7:00 p, /Blood Pressure Measurement - 123/ 76 Pulse 64 Patient at times has difficulty breathing. At that time, her BP were 02/25/2025 at 11:45 a.m. 95/67 Pulse 91 02/26/2025 at 8:50 a.m 94/67 Pulse 87 Please call patient back to discuss. Please have Lisette return her call. documented in this encounter Plan of Treatment Upcoming Encounters Date Type Department Care Team (Late st Contact Info) Description 08/06/2025 11:00 AM HEARING CARE PROFESSIONAL Office Visit [address] [phone] Clara Delgado FNP NO ADDRESS ON FILE documented as of this encounter Visit Diagnoses Not on filedocumented in this encounter Additional Health Concerns Assessment Noted Time PHQ-9 Depression Total Score: 1 01/30/20 25 12:55 PM CDT documented as of this encounter Care Teams Ladle Car Operator Relationship Specialty Start Date End Date Corbin Osorio MD [address] [address] PCP - General Family Practice 09/25/24 documented as of this encounter
--- OUTSIDE RECORDS SUMMARY | 2025-06-01 17:11 | XMS_ITS | Clinical Summary ---
Author Organization [facility] Address [address] [place] [address] Care Team Providers Care Subway Repair Supervisor Name Role Phone Unavailable Primary Care Provider Unavailabl e Allergies Active Allergy Reactions Criticality Noted Date Comments Bulk Chemical Other (See Comments) 04/16/2020 Past out Penicillins Swelling Low 04/16/2020 Sulfa (Sulfonamide Antibiotics) Rash Low 04/16/2020 Medications atenoloL (TENORMIN) 25 mg tablet Take 25 mg by mouth daily. 03/03/2020 Active Synthroid 100 mcg tablet Take 100 mcg by mouth daily. 03/03/2020 Active Active Problems Problem Noted Date Diagnosed Date Macular pucker, left eye 04/16/2020 Flashing light 04/16/2020 Floaters, bilateral 04/16/2020 Combined form of senile cataract of both eyes Family History Medical History Relation Name Comments Heart Disease Brother Amblyopia Neg Hx Blindness Neg Hx Cancer Neg Hx Cataract Neg Hx Corneal Dystrophies Neg Hx Detachment/Tears Neg Hx Diabetes Neg Hx Fuchs' dystrophy Neg Hx Glaucoma Neg Hx Hypertension Neg Hx [place] Neg Hx Macular Degen Neg Hx Strabismus Neg Hx Stroke Neg Hx Thyroid Disease Neg Hx Relation Name Status Comments Brother Social History Tobacco Use Types Packs/Day Years Used Date Smoking Tobacco: Never Smokeless Tobacco: Never Alcohol Use Standard Drinks/Week Comments Never 0 (1 standard drink = 0.6 oz pur e alcohol) Comments Unknown Sex and Gender Information Value Date Recorded Sex Assigned at Not on file Legal Sex Female 12:59 PM CDT Gender Identity Not on file Sexual Orientation Not on file Last Filed Vital Signs Vital Sign Reading Time Taken Comments Blood Pressure - - Pulse - - Temperature - - Respiratory Rate - - Oxygen Saturation - - Inhaled Oxygen Concentration - - Weight 71.2 kg (157 lb) 04/16/2020 10:02 AM CDT Per pt Height 154.9 cm (5' 1 ) 04/16/2020 10:02 AM CDT Per pt Body Mass Index 29.66 04/16/2020 10:02 AM CDT Plan of Treatment Health Maintenance Due Date Last Done Comments DTAP/TDAP/TD VACCINES (1 - Tdap) 01/13/1967 PNEUMOCOCCAL VACCINE 50+ YEARS (1 of 1 - PCV) 01/13/19 98 ZOSTER VACCINE (1 of 2) 01/13/1998 OSTEOPOROSIS SCREENING 01/13/2013 RSV VACCINE (60+ or ) (1 - 1-dose 75+ series) 01/13/2023 INFLUENZA VACCINE (#1) 2025 Insurance MEDICARE PART A AND B [place] [place]
--- OUTSIDE RECORDS SUMMARY | 2025-06-01 17:11 | XMS_ITS | Clinical Summary ---
Author Organization [facility] Address [address] [place] [address] Care Team Providers Care Plastic Roller Name Role Phone Corbin Osorio MD Primary Care Provider [phone] Allergies Active Allergy Reactions Criticality Noted Date Comments Bulk Chemical Other (See Comments) 04/16/2020 Past out Penicillins Swelling Low 04/16/2020 Sulfa (Sulfonamide Antibiotics) Rash Low 04/16/2020 Medications Synthroid 75 mcg tablet 1 TAB BY MOUTH DAILY DECREASED FROM 100MCG 2 Active atenoloL (TENORMIN) 25 mg tablet TAKE 1/2 TABLET BY MOUTH TWICE DAILY 2 Active Active Problems Problem Noted Date Diagnosed Date Primary hypertension 09/25/2024 Acquired hypothyroidism 09/25/2024 Macular pucker, left eye 04/16/2020 Combined form of senile cataract of both eyes Floaters, bilateral 04/16/2020 Resolved Problems Problem Noted Date Diagnosed Date Resolved Date Flashing light 04/16/2020 09/25/2024 Encounters Date Type Department Care Team Description 05/21/2025 External Device Data ST[facility] ABSTRACTION Provider, Abstract 04/02/2025 External Device Data [facility] ABSTRACTION Provider, Abstract 03/20/2025 External Device Data [facility] ABSTRACTION Provider, Abstract 03/12/2025 External Device Data ST[facility] ABSTRACTION Provider, Abstract from Last 3 Months Family History Medical History Relation Name Comments [...] on file Legal Sex Female 10:37 PM SENIOR PAYROLL SPECIALIST Gender Identity Not on file Sexual Orientation Not on file Last Filed Vital Signs Vital Sign Reading Time Taken Comments Blood Pressure 130/80 01/29/2025 12:59 PM CDT Pulse 65 01/29/2025 12:59 PM CDT Temperature 36.6 C (97.8 F) 01/29/2025 12:59 PM CDT Respiratory Rate 16 01/29/2025 12:59 PM CDT Oxygen Saturation 99% 01/29/2025 12:59 PM CDT Inhaled Oxygen Concentration - - Weight 70.8 kg (156 lb) 01/29/2025 12:59 PM CDT Height 154.9 cm (5' 1 ) 01/29/2025 12:59 PM CDT Body Mass Index 29.48 01/29/2025 12:59 PM CDT Plan of Treatment Upcoming Encounters Date Type Department Care Team (Late st Contact Info) Description 08/06/2025 11:00 AM SENIOR PAYROLL SPECIALIST Office Visit [address] [phone] Clara Delgado FNP NO ADDRESS ON FILE Health Maintenance Due Date Last Done Comments DTAP/TDAP/TD VACCINES (1 - Tdap) 01/13/1967 PNEUMOCOCCAL VACCINE 50+ YEARS (1 of 1 - PCV) 01/13/19 98 ZOSTER VACCINE (1 of 2) 01/13/1998 OSTEOPOROSIS SCREENING 01/13/2013 RSV VACCINE (60+ or ) (1 - 1-dose 75+ series) 01/13/2023 INFLUENZA VACCINE (#1) 2025 Traditional Medicare (ACO) Annual Wellness Visit 01/3001/29/2025 Insurance MEDICARE PART A AND B [employer] Care Teams Plastic Roller Relationship Specialty Start Date End Date Corbin Osorio MD [address] [phone] PCP - General Family Practice 09/25/24
[2025-06-01 17:49] LABS: Hematocrit 37.4 % (36-47); Hemoglobin 12.20 g/dL (11.27-16.99); Mean Corpuscular HGB Conc 32.6 g/dL (30-55); Mean Corpuscular Hemoglobin 30.9 pg (27-33); Mean Corpuscular Volume 94.7 fl (85-98); Nucleated Red Blood Cells % 0 %; Platelet Count 160 10^3/cmm (157-399); Red Blood Count 3.95 10^6/uL (3.85-5.65); White Blood Count 8.49 10^3/uL (3.29-11.43)
--- NOTE | 2025-06-01 18:07 | ECG_ITS ---
[facility]: [facility] Pat Name: Trudi Goldstein Department: Room: Gender: Female Final Dressing Cutter: : 1950 Requested By: Zeynep Felix Order Number: [id number] Xochitl MD: Víctor Chen M.D. Measurements Intervals [place] Rate: 85 P: 36 WA: 153 QRS: 24 QRSD: 80 T: 45 QT: 344 QTc: 410 Interpretive Statements SINUS RHYTHM Compared to ECG 05/20/2023 21:05:08 NO SIGNIFICANT CHANGE Electronically Signed On 06-01-2025 21:12:03 CDT by Víctor Chen M.D. [email or web address]
--- NOTE | 2025-06-01 18:07 | XRR_ITS ---
PROCEDURE INFORMATION: Exam: XR Abdomen Exam date and time: 06/01/2025 6:34 PM Age: 75 years old Clinical indication: Abdominal pain and other: Chest; Prior surgery; Surgery date: 6+ months; Surgery type: Partial hysterectomy; Additional info: Abdominal pain, chest pain TECHNIQUE: Imaging protocol: Radiologic exam of the abdomen. Views: 2 Views. Upright and supine views. COMPARISON: CR XR chest 1V portable [id number] 05/20/2023 3:19 PM FINDINGS: Gastrointestinal tract: Paucity of bowel gas. Intraperitoneal space: Normal. No free air. Vasculature: Aortic atherosclerosis. Pelvic phleboliths. Calcification overlying the left mid abdomen, could be due to phleboliths though can not totally exclude renal calculus. Bones/joints: Mild degenerative changes of the AC joints. XR/XR acute abdomen series [id number] IMPRESSION: No definite acute abnormality.
--- NOTE | 2025-06-01 18:08 | CTR_ITS ---
PROCEDURE INFORMATION: Exam: CT Head Without Contrast Exam date and time: 06/01/2025 6:49 PM Age: 75 years old Clinical indication: Syncope and collapse; Syncopal episode TECHNIQUE: Imaging protocol: Computed tomography of the head without contrast. Radiation optimization: All CT scans at this facility use at least one of these dose optimization techniques: automated exposure control; mA and/or kV adjustment per patient size (includes targeted exams where dose is matched to clinical indication); or iterative reconstruction. COMPARISON: CT head wo con* [id number] 05/20/2023 4:16 PM RADIATION DOSE METRICS: Total DLP (mGy-cm): 940.83 FINDINGS: Brain: Scattered lacunar foci in the bilateral basal ganglia, nonspecific although commonly chronic. Cerebral ventricles: Mild involutional changes of the ventricles and sulci. Paranasal sinuses: Visualized sinuses are unremarkable. No fluid levels. Mastoid air cells: Visualized mastoid air cells are well aerated. Bones: Unremarkable. No acute fracture. Soft tissues: Unremarkable. CT/CT head wo con* [id number] IMPRESSION: No acute findings.Chronic findings as above.
[2025-06-01 18:11] LABS: Alanine Aminotransferase 12 U/L (0-33); Albumin Level 4.3 g/dL (3.5-5.2); Alkaline Phosphatase 63 U/L (35-105); Anion Gap 16.6 (5-19); Aspartate Amino Transferase 20 U/L (0-32); Blood Urea Nitrogen 23 mg/dL (8-23); Calcium 8.9 mg/dL (8.5-10.5); Carbon Dioxide 22 mmol/L (22-29); Chloride 103 mmol/L (98-107); Creatinine Clr Calc Pharmacy 46.1915; Globulin 2.9 g/dL (1.3-4.6); Glucose 95 mg/dL (65-115); Lipase 39 U/L (13-60); Osmolality Calculated 289 mOsm/kg (285-295); Potassium 3.6 mmol/L (3.5-5.1); Sodium 138 mmol/L (136-145); Total Protein 7.2 g/dL (6.6-8.7)
[2025-06-01 18:12] LABS: Lactic Sepsis W/Reflex 1.4 mmol/L (0.5-2.2)
[2025-06-01 18:18] VITALS: BP 141/85; O2SAT 100
[2025-06-01 18:35] LABS: Troponin(5th) Baseline 12 ng/L (0-10)
[2025-06-01 18:40] LABS: Glucose Urine UA Negative (Normal); Nitrate Urine Negative (Negative); Specific Gravity, Urine 1.019 (1.005-1.030)
[2025-06-01 18:45] LABS: Add Urine Microscopic? YES; Universal Test for UA Present (0)
--- NOTE | 2025-06-01 18:50 | W.ED.NAVMDI ---
HPI - Nausea/Vomiting/Diarrhea General: Chief complaint: Nausea/Vomiting/Diarrhea Stated complaint: near syncope Time Seen by Provider: 06/01/25 17:09 History of Present Illness: Patient is a pleasant 75-year-old female with hypothyroidism, presented to the emergency room with a plethora of complaints. Initially, Content: Patient initially started having symptoms yesterday, urinary tract, was seen at [facility] diagnosed with UTI, and took her first dose of cefdinir at noon. Patient started having nausea and vomiting this afternoon, associated with dizziness, at 3:30 PM. She has ongoing nausea, vomiting, dizziness, and constipation. She now complains of left-sided chest pain, and shortness of breath. On reevaluation, patient is improved, and states that she now realizes she has had some ongoing GI complaints that have not come to fruition the last few days. Associated nausea: Yes Associated symtoms: Reports nausea; Denies anxiety, change in vision, chest pain, fatigue or headache(s) Related Data Previous Rx's ?Medication ?Instructions ?Recorded loratadine 10 mg tablet 10 mg PO DAILY 90 days #90 tabs 01/05/24 Synthroid 75 mcg tablet See Rx Instructions .Route 03/04/25 (levothyroxine) .COMPLEX #90 tabs prednisone 20 mg tablet 20 mg PO DAILY #5 tabs 04/22/25 ondansetron 4 mg disintegrating 4 mg PO Q8H PRN nausea and 06/01/25 tablet vomiting 4 days #14 tabs Allergies Allergy/AdvReac Type Severity Reaction Status Date / Time clindamycin Allergy ADR-Gastrointestinal Verified 06/01/25 17:16 Upset hydrochlorothiazide Allergy ALGY-Rash Verified 06/01/25 17:16 Penicillins Allergy Unknown Verified 06/01/25 17:16 Sulfa (Sulfonamide Allergy Unknown Verified 06/01/25 17:16 Antibiotics) amlodipine AdvReac Mild tingling Verified 06/01/25 17:16 Many Allergies- List Unknown Allergy Unknown Uncoded 04/22/25 10:18 Review of Systems Const: Denies: fever(s), chills, change in weight, fatigue or night sweats Eyes: Denies: change in vision or blurry vision ENMT: Reports: uvular edema; Denies: ear or mastoid pain or sinus pain Card: Denies: chest pain, swelling of feet/ankles or dyspnea on exertion Resp: Denies: dyspnea or productive cough GI: Reports: abdominal pain, nausea, vomiting and diarrhea : Denies: flank pain or difficulty voiding Musc: Denies: neck pain, back pain or joint pain Skin/Breast: Denies: rash Neuro: Denies: headache(s), numbness in extremities or weakness in extremities Psych: Denies: anxiety or depression Endo: Denies: polyuria, polydipsia or tired all the time Jd/Lymph: Denies: easy bruising PFSH ED PFSH: Medical History (Updated 06/01/25 @ 20:22 by TIKI Beltre) Hypertension Did not tolerate hydrochlorothiazide, spironolactone, amlodipine, losartan Hypothyroid Surgical History History of partial hysterectomy History of carpal tunnel surgery Social History Smoking and tobacco/nicotine status: never used tobacco/nicotine Alcohol intake: never Substance/Drug Use: never Physical Exam Narrative: EXAM NARRATIVE: Well-appearing no acute distress Const: COMMON NORMALS: patient oriented x3 and alert GENERAL APPEARANCE: comfortable and well kempt HENMT: COMMON NORMALS: normocephalic, EAC's normal, TM's normal bilaterally, Normal external nose present and moist oral mucous membranes HEAD & SCALP: normocephalic FACE & SINUS: sinuses nontender NOSE: Normal external nose present and Nasal discharge present clear EXTERNAL AUDITORY CANAL: EAC's normal TYMPANIC MEMBRANE: TM's normal bilaterally MOUTH: Normal oral and palatal mucosa present THROAT: postnasal drainage and uvular edema Neck/C-Spine: COMMON NORMALS: no lymphadenopathy and no meningeal signs Resp: COMMON NORMALS: normal respiratory effort and clear to auscultation bilaterally AUSCULTATION: clear to auscultation bilaterally Cardio: COMMON NORMALS: regular rate and regular rhythm RATE: regular rate RHYTHM: regular rhythm GI: COMMON NORMALS: Normal to inspection, nondistended, normoactive bowel sounds present, Soft to palpation, non-tender and No hepatosplenomegaly present PALPATION: Yes Soft to palpation and Yes No hepatosplenomegaly present : COMMON NORMALS: Yes no CVA tenderness BLADDER/KIDNEY EXAM: Yes no CVA tenderness Back/Pelvis: COMMON NORMALS: no CVA tenderness Extremity: COMMON NORMALS: normal to inspection, full ROM and capillary refill normal Neuro: COMMON NORMALS: patient oriented x3 SENSORIUM/ORIENTATION: Yes alert MENINGEAL SIGNS: Yes no meningeal signs Psych: APPEARANCE: Yes well kempt Skin: COMMON NORMALS: turgor normal GENERAL SKIN EXAM: turgor normal Course Vital Signs: Vital signs: Vital Signs Temperature 98.1 F 06/01/25 17:06 Pulse Rate 91 06/01/25 21:09 Respiratory Rate 16 06/01/25 21:09 Blood Pressure 125/66 06/01/25 21:09 Pulse Oximetry 96 06/01/25 21:09 Oxygen Delivery Me thod Room Air 06/01/25 20:00 MDM - Nausea/Vomiting/Diarrhea Medical Decision Making Patient is a 75-year-old female that presents to the emergency room with initially having concerns of her nausea, vomiting, abdominal pain, that was epigastric in nature, then radiating through her chest. Suspect her abdominal pain was associated with gastritis with her GI upset/gastroenteritis. She was diagnosed with UTI earlier today at [facility], and treated with cefdinir. Given her hematuria on CT, her abdominal films were expanded to a CT of her abdomen and pelvis, which was significant for enteritis. Given her dizziness as well that she had complaints of, vertigo symptoms, a CT of her head was done. No additional intervention was done, this resolved with IV fluids. Suspected secondary to the viral syndrome. Patient will continue on her UTI antibiotics, stay on clear liquids until her abdominal pain nausea and vomiting resolves, and return if she needs further assistance. She will also follow-up with her primary care as directed. Medical Records I reviewed the patient's medical records. Lab Data I reviewed the patient's lab results. 06/01/25 17:43 06/01/25 17:43 Radiology Impressions Chest/Abdomen X-ray 06/01/25 18:07 IMPRESSION: No definite acute abnormality. Head CT 06/01/25 18:08 IMPRESSION: No acute findings.Chronic findings as above. Abdomen/Pelvis CT 06/01/25 19:19 IMPRESSION: 1. Nonobstructing left renal calculus. 2. Colonic diverticulosis predominantly sigmoid without definite significant acute inflammatory changes. Fluid attenuation luminal material within multiple loops of small bowel and colon, may be related to ingested material although can not exclude mild enteritis/colitis or diarrhea related process. Laboratory Results WBC 8.49 10^3/uL (3.29-11.43) 06/01/25 17:43 RBC 3.95 10^6/uL (3.85-5.65) 06/01/25 17:43 Hgb 12.20 g/dL (11.27-16.99) 06/01/25 17:43 Hct 37.4 % (36-47) 06/01/25 17:43 MCV 94.7 fl (85-98) 06/01/25 17:43 MCH 30.9 pg (27-33) 06/01/25 17:43 MCHC 32.6 g/dL (30-55) 06/01/25 17:43 RDW 13.1 % (12.1-15.1) 06/01/25 17:43 Plt Count 160 10^3/cmm (157-399) 06/01/25 17:43 MPV 9.9 fL (7.4-10.4) 06/01/25 17:43 Neut % (Auto) 90.9 % 06/01/25 17:43 Lymph % (Auto) 5.9 % 06/01/25 17:43 [place] % (Auto) 2.7 % 06/01/25 17:43 Eos % (Auto) 0.2 % 06/01/25 17:43 Baso % (Auto) 0.1 % 06/01/25 17:43 Neut # (Auto) 7.71 10^3/uL (1.8-7.7) H 06/01/25 17:43 Lymph # (Auto) 0.5 10^3/uL (0.8-4.8) L 06/01/25 17:43 [place] # (Auto) 0.2 10^3/uL (0.2-0.9) 06/01/25 17:43 Eos # (Auto) 0.0 10^3/uL (0.0-0.8) 06/01/25 17:43 Baso # (Auto) 0.0 10^3/uL (0.0-0.1) 06/01/25 17:43 Nucleated RBC % (auto) 0 % 06/01/25 17:43 Nucleated RBCs # 0.0 /100WBC 06/01/25 17:43 Sodium 138 mmol/L (136-145) 06/01/25 17:43 Potassium 3.6 mmol/L (3.5-5.1) 06/01/25 17:43 Chloride 103 mmol/L (98-107) 06/01/25 17:43 Carbon Dioxide 22 mmol/L (22-29) 06/01/25 17:43 Anion Gap 16.6 (5-19) 06/01/25 17:43 BUN 23 mg/dL (8-23) 06/01/25 17:43 Creatinine 0.9 mg/dL (0.5-0.9) 06/01/25 17:43 GFR Calculation Not Reportable 06/01/25 17:43 Glucose 95 mg/dL (65-115) 06/01/25 17:43 Calculated Osmolality 289 mOsm/kg (285-295) 06/01/25 17:43 Lactic Acid 1.4 mmol/L (0.5-2.2) 06/01/25 17:43 Calcium 8.9 mg/dL (8.5-10.5) 06/01/25 17:43 Total Bilirubin 0.5 mg/dL (0.15-1.2) 06/01/25 17:43 AST 20 U/L (0-32) 06/01/25 17:43 ALT 12 U/L (0-33) 06/01/25 17:43 Alkaline Phosphatase 63 U/L (35-105) 06/01/25 17:43 Troponin T Baseline 12 ng/L (0-10) H 06/01/25 17:43 Troponin T 120 Minute 10.89 ng/L (0-10) H 06/01/25 19:30 Delta Troponin T -1.11 ABS# (0-10) L 06/01/25 19:30 Total Protein 7.2 g/dL (6.6-8.7) 06/01/25 17:43 Albumin 4.3 g/dL (3.5-5.2) 06/01/25 17:43 Globulin 2.9 g/dL (1.3-4.6) 06/01/25 17:43 Lipase 39 U/L (13-60) 06/01/25 17:43 Urine Color Yellow (Yellow) 06/01/25 18:33 Urine Appearance Cloudy (CLEAR) A 06/01/25 18:33 Urine pH 5.5 (5-7) 06/01/25 18:33 Ur Specific [place] 1.019 (1.005-1.030) 06/01/25 18:33 Urine Protein 1+ (Negative) A 06/01/25 18:33 Urine Glucose (UA) Negative (Normal) 06/01/25 18: Urine Ketones 1+ (Negative) H 06/01/25 18: Urine Blood 3+ (Negative) A 06/01/25 18: Urine Nitrate Negative (Negative) 06/01/25 18: Urine Bilirubin Negative (Negative) 06/01/25 18: Urine Urobilinogen 1.0 mg/dL (Negative) 06/01/25 18: Ur Leukocyte Esterase 1+ (Negative) A 06/01/25 18:33 Urine RBC >100 /hpf (0-2) H 06/01/25 18:33 Urine WBC 11-20 /hpf (0-5) H 06/01/25 18:33 Ur Squamous Epith Cells 11-20 /hpf (0-5) H 06/01/25 18:33 Amorphous Sediment Not Reportable 06/01/25 18:33 Urine Bacteria None seen /hpf (NONE) 06/01/25 18:33 Hyaline Casts 33.93 /lpf 06/01/25 18:33 All radiology interpretation(s) finalized by discharge EKG Data EKG 1: Interpretation: Normal sinus rhythm, normal axis Discharge Plan Discharge Patient Disposition: Home Clinical Impression: Gastroenteritis Condition: Stable Prescriptions: New ondansetron 4 mg tablet,disintegrating 4 mg PO Q8H PRN (Reason: nausea and vomiting) 4 Days Qty: 14 0RF No Action loratadine 10 mg tablet 10 mg PO DAILY 90 Days Qty: 90 2RF Synthroid 75 mcg tablet See Rx Instructions .ROUTE .COMPLEX Qty: 90 3RF Dose Instruction: TAKE ONE TABLET BY MOUTH DAILY Rx Instructions: TAKE ONE TABLET BY MOUTH DAILY prednisone 20 mg tablet 20 mg PO DAILY Qty: 5 0RF Discharge Orders: Discharge ED (Routine); Ordered 06/01/25 Ordered By: Zeynep Felix Referrals: Yenifer Eldridge MD [Primary Care Provider, Family Practice] Discharge Diet: Clear Liquid Discharge Activity: Resume usual activity Patient Instructions: Clear Liquid Diet (ED), Gastroenteritis (ED), Patient Portal & Mara Instructions Activity Restrictions/Additional Instructions: - Liquid diet only until all your symptoms withdrawal. This does appear to be significant for colitis. - Zofran has been sent to the pharmacy. Use as directed. - You may return back to the ED if you have worsening symptoms, ongoing fever greater than 100.4 ?F - You are already under treatment for your urinary tract infection. Please continue your antibiotics as directed. Thank you for choosing [facility] for your healthcare needs today. You have been screened and evaluated and felt safe for discharge. Health conditions do change or evolve sometimes and as such it is important that you follow up with your Primary Doctor to be re checked, 3-5 days is a general good time frame for follow up. You are always welcome to return to the ED for re assessment if your symptoms are worsening or you have new concerns Print Language: Greenlandic Coding Level of Care Code ED Nursing Home Admissions Director for [facility]
[2025-06-01 19:16] VITALS: BP 152/85; O2SAT 100
--- NOTE | 2025-06-01 19:19 | CTR_ITS ---
PROCEDURE INFORMATION: Exam: CT Abdomen And Pelvis Without Contrast Exam date and time: 06/01/2025 7:33 PM Age: 75 years old Clinical indication: Nausea and vomiting and other: Gross hematuria; Abdominal pain; Generalized; Prior surgery; Surgery date: 6+ months; Surgery type: Hysterectomy; Diffuse abd pain with n/v/d. Gross hematuria. Recent UTI. ; Additional info: Hematuria, abd pain TECHNIQUE: Imaging protocol: Computed tomography of the abdomen and pelvis without contrast. Radiation optimization: All CT scans at this facility use at least one of these dose optimization techniques: automated exposure control; mA and/or kV adjustment per patient size (includes targeted exams where dose is matched to clinical indication); or iterative reconstruction. COMPARISON: CR (ABDOMEN, ) 06/01/2025 6:34 PM RADIATION DOSE METRICS: Total DLP (mGy-cm): 599.28 FINDINGS: Liver: Normal. No mass. Gallbladder and biliary ducts: Normal. No calcified stones. No ductal dilation. Pancreas: Normal. No ductal dilation. Spleen: Normal. No splenomegaly. Adrenal glands: Normal. No mass. Kidneys and ureters: Nonobstructing left renal calculus. Stomach and bowel: Colonic diverticulosis predominantly sigmoid without definite significant acute inflammatory changes. Fluid attenuation luminal material within multiple loops of small bowel and colon, may be related to ingested material although can not exclude mild enteritis/colitis or diarrhea related process. Appendix: No evidence of appendicitis. Intraperitoneal space: Unremarkable. No free air. No significant fluid collection. 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 Aortic atherosclerosis. Lymph nodes: Unremarkable. No enlarged lymph nodes. Urinary bladder: Unremarkable as visualized. Reproductive: Hysterectomy. Bones/joints: Unremarkable. No acute fracture. Soft tissues: Unremarkable. CT/CT kidney stone [id number] IMPRESSION: 1. Nonobstructing left renal calculus. 2. Colonic diverticulosis predominantly sigmoid without definite significant acute inflammatory changes. Fluid attenuation luminal material within multiple loops of small bowel and colon, may be related to ingested material although can not exclude mild enteritis/colitis or diarrhea related process.
[2025-06-01 19:50] VITALS: BP 147/82; O2SAT 100
[2025-06-01 19:53] LABS: Troponin 5 2HR 10.89 ng/L (0-10)
[2025-06-01 20:00] VITALS: BP 135/66; PULSE 83; RESP 16; O2SAT 96
[2025-06-01 20:01] LABS: Troponin 5 2HR Delta -1.11 ABS# (0-10)
[2025-06-01] MEDS: pantoprazole 40 mg SDV IVP (20:47)
[2025-06-01 21:09] VITALS: BP 125/66; PULSE 91; RESP 16; O2SAT 96
== END 2025-06-01 21:08 | disposition home or self-care (01) ==
PROVIDERS: Emergency Provider Physician Assistant; PCP Family Medicine
DX: K52.9 Noninfective gastroenteritis and colitis, unspecified (principal); I10 Essential (primary) hypertension
CPT/HCPCS: 36415; 70450; 74022; 74176; 80053; 81001; 83605; 83690; 84484; 85025; 93005; 96361; 96374; 99285; J2470; J7120

== ENCOUNTER → 2025-06-04 11:08 | Outpatient (BNVA) | payer MEDICARE, OTHER, SELFPAY | PROVIDERS: PCP Family Medicine; Visit Provider Nurse Practitioner | DX: N39.0 Urinary tract infection, site not specified (principal) | CPT/HCPCS: 81000; 87086 ==

== ENCOUNTER → 2025-06-20 09:47 | Outpatient (BNVA) | payer MEDICARE, OTHER, SELFPAY | PROVIDERS: PCP Family Medicine; Visit Provider Family Medicine | DX: R93.6 Abnormal findings on diagnostic imaging of limbs (principal); M25.562 Pain in left knee; R53.83 Other fatigue | CPT/HCPCS: 73562; 81000; 87086 ==

== ENCOUNTER → 2025-07-11 09:55 | Outpatient (BNVA) | payer MEDICARE, OTHER, SELFPAY | PROVIDERS: PCP Family Medicine; Visit Provider Nurse Practitioner | DX: R39.89 Other symptoms and signs involving the genitourinary system (principal) | CPT/HCPCS: 81000; 87086 ==

== ENCOUNTER → 2025-07-22 08:49 | Outpatient (BNVA) | payer MEDICARE, OTHER, SELFPAY | PROVIDERS: PCP Family Medicine; Visit Provider Family Medicine | DX: R30.0 Dysuria (principal) | CPT/HCPCS: 81000; 87086 ==

== ENCOUNTER 2025-07-26 05:32 | Emergency (ER) | payer MEDICARE, OTHER, SELFPAY ==
--- OUTSIDE RECORDS SUMMARY | 2025-07-26 05:39 | XMS_ITS | Clinical Summary ---
Author Organization [facility] Address [address] [place] [address] Care Team Providers Care Copier Operator Name Role Phone Unavailable Primary Care Provider [...]
--- OUTSIDE RECORDS SUMMARY | 2025-07-26 05:39 | XMS_ITS | Clinical Summary ---
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
[2025-07-26 05:46] VITALS: BP 203/113; PULSE 68; RESP 16; TEMP 36.6; O2SAT 100; BMI 28.9
--- NOTE | 2025-07-26 05:53 | ED_ITS ---
HPI - Allergic Reaction General: Chief complaint: Allergic Reaction Stated complaint: ALLERGIC REACTION Time Seen by Provider: 07/26/25 05:42 Source: patient and EMS Mode of arrival: EMS Limitations: no limitations History of Present Illness: HPI narrative: 75-year-old female states that she belie ves she is having allergic reaction states she did take her flucanazole 2 days ago and has been having some feelings of her tongue swelling and some throat swelling. States she has had many allergic reactions in the past. She denies any shortness of breath she denies any pain anywhere denies any fevers or rash. She denies any worse improving factors is not taking any meds Related Data Previous Rx's ?Medication ?Instructions ?Recorded Synthroid 75 mcg tablet See Rx Instructions .Route 0 03/04/25 (levothyroxine) .COMPLEX #90 tabs fluconazole 150 mg tablet 150 mg PO Q3D 2 doses #2 tab s 07/22/25 Allergies Allergy/AdvReac Type Severity Reaction Status Date / Time clindamycin Allergy ADR-Gastrointestinal Verified 07/22/25 08:42 Upset hydrochlorothiazide Allergy ALGY-Rash Verified 07/22/25 08:42 Penicillins Allergy Unknown Verified 07/22/25 08:42 Sulfa (Sulfonamide Allergy Unknown Verified 07/22/25 08:42 Antibiotics) amlodipine AdvReac Mild tingling Verified 07/22/25 08:42 Many Allergies- List Unknown Allergy Unknown Uncoded 07/22/25 08:42 [facility] ED PFSH: Medical History Hypertension Did not tolerate hydrochlorothiazide, spironolactone, amlodipine, losartan Hypothyroid Surgical History History of partial hysterectomy History of carpal tunnel surgery Social History Smoking and tobacco/nicotine status: former use of tobacco/nicotine Alcohol intake: never Substance/Drug Use: never Physical Exam Const: COMMON NORMALS: no acute distress, patient oriented x3 and healthy appearing HENMT: COMMON NORMALS: normocephalic and atraumatic HEAD & SCALP: normocephalic and atraumatic MOUTH: Normal oral and palatal mucosa present THROAT: posterior oropharynx normal Eye: COMMON NORMALS: Equal, round and reactive pupils present and EOMs intact bilaterally PUPIL: Yes Equal, round and reactive pupils present Neck/C-Spine: COMMON NORMALS: full ROM and supple Chest: COMMONS NORMALS: normal inspection of the chest and normal palpation of entire chest wall Resp: COMMON NORMALS: normal respiratory effort, No retractions, No use of accessory muscles and clear to auscultation bilaterally AUSCULTATION: clear to auscultation bilaterally Cardio: COMMON NORMALS: regular rate, regular rhythm and No murmurs present (Cardio) RATE: regular rate RHYTHM: regular rhythm Extremity: COMMON NORMALS: normal to inspection and full ROM Neuro: COMMON NORMALS: patient oriented x3, moves all extremities and no focal motor deficits Psych: COMMON NORMALS: mental status grossly normal, Normal thought process present and cooperative THOUGHT PROCESS: Normal thought process present Skin: COMMON NORMALS: no rashes or lesions noted and no wounds GENERAL SKIN EXAM: no rashes or lesions noted Course Vital Signs: Vital signs: Vital Signs Temperature 98 F 07/26/25 05:46 Pulse Rate 60 07/26/25 06:15 Respiratory Rate 16 07/26/25 06:15 Blood Pressure 161/85 07/26/25 06:15 Pulse Oximetry 100 07/26/25 06:15 Oxygen Delivery Me thod Room Air 07/26/25 06:15 MDM - Allergic Reaction Medical Decision Making 74-year-old female presents here with likely reaction to her Diflucan. She felt like she had some tongue swelling did give her Decadron and Benadryl here her symptoms have improved on exam she has no signs of rash or swelling in her posterior pharynx or tongue. Her breath sounds are equal no signs of anaphylaxis she is stable for discharge follow-up with PCP return if worsening she understands agrees to plan. Medical Records I reviewed the patient's medical records. No radiology studies performed this visit Discharge Plan Discharge Patient Disposition: Home Clinical Impression: Allergic reaction Condition: Stable Prescriptions: No Action fluconazole 150 mg tablet 150 mg PO Q3D Qty: 2 0RF Rx Instructions: may repeat second dose 72 hrs after first dose if symptoms persist Synthroid 75 mcg tablet See Rx Instructions .ROUTE .COMPLEX Qty: 90 3RF Dose Instruction: TAKE ONE TABLET BY MOUTH DAILY Rx Instructions: TAKE ONE TABLET BY MOUTH DAILY Discharge Orders: Discharge ED (Routine); Ordered 07/26/25 Ordered By: Sanjay Hoyos Referrals: Yenifer Eldridge MD [Primary Care Provider, Family Practice] - 4-7 days Discharge Diet: Advance as tolerated Discharge Activity: Resume usual activity Patient Instructions: Adverse Drug Reaction (ED) Print Language: Moldovan Coding Level of Care Code ED [facility] D[facility]cher for [facility]
[2025-07-26] MEDS: diphenhydrAMINE 50 mg/mL SDV 1mL 25 MG IVP (05:55)
[2025-07-26 06:15] VITALS: BP 161/85; PULSE 60; RESP 16; O2SAT 100
== END 2025-07-26 07:51 | disposition home or self-care (01) ==
PROVIDERS: Emergency Provider Emergency Medicine; PCP Family Medicine
DX: T78.40XA Allergy, unspecified, initial encounter (principal); X58.XXXA Exposure to other specified factors, initial encounter; Z87.891 Personal history of nicotine dependence; I10 Essential (primary) hypertension
CPT/HCPCS: 96374; 96375; 99284; J1100; J1200

== ENCOUNTER → 2025-07-30 11:41 | Outpatient (BNVA) | payer MEDICARE, OTHER, SELFPAY | PROVIDERS: PCP Family Medicine; Visit Provider Family Medicine | DX: R68.83 Chills (without fever) (principal); B34.9 Viral infection, unspecified; E03.9 Hypothyroidism, unspecified | CPT/HCPCS: 80053; 84439; 84443; 84481; 85025 ==